=== PATIENT | female | born 2000 | race Caucasian/White ===

== ENCOUNTER 2018-10-06 06:04 | Day surgery (SDC) | payer OTHER ==
[2018-09-29 10:02] LABS: HEMATOCRIT 41.3 % (36.0-47.0); MEAN CORPUSCULAR HEMOGLOBIN 30.7 pg (27.0-33.4); MEAN CORPUSCULAR VOLUME 90 fl (80-97); PLATELET COUNT 169 10^3/uL (150-450); RED BLOOD COUNT 4.58 10^6/uL (3.72-5.28); RED CELL DISTRIBUTION WIDTH 12.5 % (11.5-14.0); WHITE BLOOD COUNT 4.5 10^3/uL (4.0-10.5)
[2018-09-29 10:23] LABS: APPEARANCE,URINE CLEAR; BILIRUBIN,URINE NEGATIVE (NEGATIVE); COLOR,URINE YELLOW; GLUCOSE, URINE NEGATIVE (NEGATIVE); KETONES,URINE NEGATIVE (NEGATIVE); LEUKOCYTE ESTERASE,URINE NEGATIVE (NEGATIVE); NITRITE,URINE NEGATIVE (NEGATIVE); PROTEIN,URINE NEGATIVE (NEGATIVE); URINE SPECIFIC GRAVITY 1.023; UROBILINOGEN,URINE NEGATIVE mg/dL (<2.0)
[2018-09-29 10:32] LABS: ANION GAP 11 (5-19); BLOOD UREA NITROGEN 9 mg/dL (7-20); CALCIUM 9.5 mg/dL (8.4-10.2); CARBON DIOXIDE 26 mmol/L (22-30); CHLORIDE 107 mmol/L (98-107); GLUCOSE 86 mg/dL (75-110); POTASSIUM 4.7 mmol/L (3.6-5.0); SODIUM 144.1 mmol/L (137-145)
--- NOTE | 2018-09-29 13:39 | EKG REPORT ---
SEVERITY:- NORMAL ECG - SINUS RHYTHM : Confirmed by: Eder Sahu MD 29-Sep-2018 13:38:59
[~2018-10-06 06:04] MED LIST: CEFAZOLIN 2 GM/D5W RTU 2 GM/50 ML RTUPB IV ONE; CEFAZOLIN 2 GM/D5W RTU 2 GM/50 ML RTUPB IV PRN; LACTATED RINGERS 1000 ML IV PRN; LIDOCAINE 0.5% INJ-PF (5 MG/ML) 50 ML SDV SUBCUT PRN
[2018-10-06] MEDS ORDERED: KETOROLAC TROMETHAMINE 60 MG/2 ML SDV ONE (06:14)
[2018-10-06] MEDS ORDERED: LIDOCAINE 2% INJ-PF (20 MG/ML) 10 ML AMPUL ONE (06:14)
[2018-10-06] MEDS ORDERED: MIDAZOLAM 2 MG/2 ML INJ ONE (06:15)
[2018-10-06] MEDS ORDERED: DEXAMETHASONE SOD PHOSPHATE INJ 4 MG/1 ML VIAL ONE (06:15)
[2018-10-06] MEDS ORDERED: FENTANYL CITRATE INJ/PF 100 MCG/2 ML AMPUL ONE ×2 (06:15→11:18)
[2018-10-06] MEDS ORDERED: ONDANSETRON HCL INJ/PF 4 MG/2 ML SDV ONE (06:15)
[2018-10-06] MEDS ORDERED: PROPOFOL INJ 200 MG/20 ML VIAL IV ONE (06:15)
[2018-10-06] MEDS ORDERED: ACETAMINOPHEN 1,000 MG/100 ML RTUPB IV ONE (06:16)
[2018-10-06] MEDS ORDERED: MEPERIDINE HCL/PF INJ 25 MG/1 ML DISP.SYRIN IV PRN (08:23)
[2018-10-06] MEDS ORDERED: FENTANYL CITRATE INJ/PF 100 MCG/2 ML AMPUL IV PRN ×3 (08:23)
[2018-10-06] MEDS ORDERED: PROMETHAZINE HCL INJ 25 MG/1 ML VIAL IV PRN ×2 (08:23)
[2018-10-06] MEDS ORDERED: ONDANSETRON HCL INJ/PF 4 MG/2 ML SDV IV PRN ×2 (08:23→11:09)
[2018-10-06] MEDS ORDERED: DIPHENHYDRAMINE HCL 50 MG/ML VIAL IV PRN (08:23)
[2018-10-06] MEDS ORDERED: MORPHINE SULFATE 10 MG/ML INJ IV PRN ×2 (08:23→11:09)
[2018-10-06] MEDS: BUPIVACAINE HCL 0.5 % INJ/PF 30 ML SDV ONE ×2 (08:30→10:38)
[2018-10-06] MEDS ORDERED: SUCCINYLCHOLINE CHLORIDE INJ 200 MG/10 ML VIAL ONE (08:52)
--- NOTE | 2018-10-06 11:08 | Operative Report ---
Operative Report DATE OF SURGERY: 10/06/18 PREOPERATIVE DIAGNOSIS: Left scaphoid nonunion POSTOPERATIVE DIAGNOSIS: Same OPERATION: ORIF scaphoid nonunion with vascularized bone graft SURGEON: KOFFI WARD ANESTHESIA: GA COMPLICATIONS: None ESTIMATED BLOOD LOSS: Minimal PROCEDURE: Indication for above procedure: 17-year-old female who sustained a fracture of her scaphoid. In outside facility she underwent 2 previous surgical treatments first being an ORIF second being removal of hardware. Patient presented to me with persistent pain and radiographs consistent with scaphoid nonunion. We discussed treatment options including salvage procedure versus attempted ORIF. After discussing risks and benefits were discussed. Joint decision was then made to proceed with reported reduction internal fixation with vascularized bone graft. Patient verbalized understanding consented for the procedure. Procedure In Detail: Patient was seen and evaluated in the preoperative holding area. The LEFT upper extremity was initialized and marked. Patient received 2g of Ancef IV for bacterial prophylaxis. Patient was taken back to the operative room where transferred to the operative table and placed under general anesthesia. Once they were adequately anesthetized a nonsterile tourniquet was placed on the upper extremity. A surgical team debriefing was performed ensuring all instrumentation was available, the surgical procedure was discussed with possible concerns reviewed. The upper extremity was prepped with chlorhexidine and alcohol and draped in a sterile fashion. A timeout was done identifying correct patient, procedure and extremity everyone in attendance agree with this and verbalized no concerns. The extremity was elevated and the tourniquet was inflated to 250 mmHg. Volar skin incision was made, curvilinear crossing the wrist flexion crease. The FCR tendon was identified and the palmar cutaneous branch of the median nerve adjacent was tagged. Blunt dissection was performed down to the scaphoid. Branch of the superficial radial artery was identified and coagulated to obtain access to the scaphoid. The volar capsule was then incised to expose the nonunion site, RSL ligament was left undisrupted. With wrist extension the nonunion site was opened. With curettes and a small rondure the nonunion site debrided to normal-appearing tissues. There was fragmentation of the ulnar aspect of the proximal scaphoid. With the wrist in extension the humpback deformity was corrected. The defect was measured to be approximately 12 mm x 10 mm x 10 mm. The FCR tendon was then retracted in a radial direction to expose the underlying pronator quadratus the pedicle of the palmar radiocarpal artery within the pronator was identified and tracked from radially to ulnarly. Under C-arm fluoroscopy the confines of the graft were marked with K wires to ensure no encroachment on the radiocarpal joint or DRUJ. The appropriate size measured as noted above. Sharp dissection was performed around the pedicle of the radiocarpal artery including periosteum. Pedicle remained undisturbed. With small osteotomes the pedicle graft was then carefully removed. The periosteum was elevated radially to complete graft harvest. Graft was carefully removed blunt dissection performed following the pedicle to its origin from the radial artery to obtain adequate pedicle length. The FCR sheath was then opened to allow inset of the graft within the defect of the scaphoid. Additional cancellus bone was removed from the harvest site. Area was copiously irrigated with normal saline. Defect within the distal radius was then filled with Vitoss synthetic bone graft The wrist was then volar flexed and a incision made along the radial styloid and superficial radial nerve retracted. A 0.045 K wire placed from the radius into the lunate to maintain alignment of the proximal pole of the scaphoid. The wrist was then extended an additional 0.045 K wire was placed from the scaphoid into the capitate to maintain alignment. C-arm fluoroscopy was obtained confirming adequate alignment with correction of the humpback deformity. K wire was placed from the volar scaphoid tubercle transversing into the proximal pole of the scaphoid under direct visualization to ensure adequate bone stock within the proximal pole. C-arm fluoroscopy was obtained confirming appropriate placement. Once satisfied with placement of the K wire and correction of the deformity the K wire was reversed. Wound was copiously irrigated with normal saline. The nonunion site was packed with cancellus bone and the vascularized graft inset. K wire was then once again advanced transversing the vascularized graft. C-arm fluoroscopy was obtained confirming church of alignment with adequate fixation. K wires within the scaphoid- capitate and radial lunate were cut and left outside the skin. Tourniquet was deflated which demonstrate good blood flow to the vascularized pedicle Volar capsule was reapproximated with 2-0 Vicryl. Any peripheral bleeding was controlled with bipolar cautery until the wound was dry. Subcutaneous tissues were closed with interrupted 4-0 Monocryl suture. Skin was closed with 4-0 nylon suture. 30 cc of 0.5% bupivacaine without epinephrine was injected for postoperative pain control. Wound was dressed and patient was placed in a thumb spica splint. Sponge counts, instrument counts, needle counts counts were correct. Patient was then awoken from anesthesia. Transferred from the operating room table to the operating room stretcher. There was no intraoperative complications patient tolerated procedure well stable to PACU. Postoperative plan: Patient will follow in the office in 2 weeks for suture removal and we placed in a thumb spica cast. Will begin bone stimulator postoperatively. Plan will be for pin removal at 6 weeks postoperatively.
[2018-10-06] MEDS ORDERED: OXYCODONE-ACETAMINOPHEN 5-325 MG TABLET PO PRN (11:09)
[2018-10-06] MEDS ORDERED: OXYCODONE-ACETAMINOPHEN 5-325 MG TABLET ONE (11:49)
--- NOTE | 2018-10-06 12:28 | RADIOLOGY REPORT (SQ) ---
EXAM DESCRIPTION: NO CHG FLUORO; WRIST LEFT 2 VIEWS COMPLETED DATE/TIME: 10/06/2018 10:50 am REASON FOR STUDY: LEFT WRIST ORIF SCAPHOID W/VASCULARIZED BONE GRAFT S62.022K DISP FX OF MID 3RD OF NAVIC BONE OF L WRS, 7THK COMPARISON: None. FLUOROSCOPY TIME: 1 minutes 58 seconds 13 images saved to PACS. TECHNIQUE: Intra-operative images acquired during surgical procedure to evaluate progress. NUMBER OF IMAGES: 13 LIMITATIONS: None. FINDINGS: Numerous images obtained during surgery on the wrist. Reportedly the left wrist. Images are not labeled with respect to side, however. There is open reduction internal fixation noted, screw across scaphoid fracture with external pins ac ross the mid carpus. Please correlate with operative note. IMPRESSION: IMAGE(S) OBTAINED DURING PROCEDURE. COMMENT: Quality ID 145: Final reports for procedures using fluoroscopy that document radiation exp osure indices, or exposure time and number of fluorographic images (if radiation exposure indices are not available) Please consult full operative report of the attending physician for description of the procedure. TECHNICAL DOCUMENTATION: JOB ID: [id number] [employer]- All Rights Reserved Reading location - IP/workstation name: [email or web address]
--- NOTE | 2018-10-06 12:28 | RADIOLOGY REPORT (SQ) ---
EXAM DESCRIPTION: NO CHG FLUORO; WRIST LEFT 2 VIEWS COMPLETED DATE/TIME: 10/06/2018 10:50 am REASON FOR STUDY: LEFT WRIST ORIF SCAPHOID W/VASCULARIZED BONE GRAFT S62.022K DISP FX OF MID 3RD OF NAVIC BONE OF L WRS, 7THK COMPARISON: None. FLUOROSCOPY TIME: 1 minutes 58 seconds 13 images saved to PACS. TECHNIQUE: Intra-operative images acquired during surgical procedure to evaluate progress. NUMBER OF IMAGES: 13 LIMITATIONS: None. FINDINGS: Numerous images obtained during surgery on the wrist. Reportedly the left wrist. Images are not labeled with respect to side, however. There is open reduction internal fixation noted, screw across scaphoid fracture with external pins ac ross the mid carpus. Please correlate with operative note. IMPRESSION: IMAGE(S) OBTAINED DURING PROCEDURE. COMMENT: Quality ID [id number]: Final reports for procedures using fluoroscopy that document radiation exp osure indices, or exposure time and number of fluorographic images (if radiation exposure indices are not available) Please consult full operative report of the attending physician for description of the procedure. TECHNICAL DOCUMENTATION: JOB ID: [id number] [employer]- All Rights Reserved Reading location - IP/workstation name: [email or web address]
[2018-10-06 13:25] VITALS: BP 100/65
== END 2018-10-06 13:00 | disposition home or self-care (01) ==
LOC: OROUT 06:04
PROVIDERS: ATTEND Orthopaedic Surgery
DX: S62.022K Displaced fracture of middle third of navicular [scaphoid] bone of left wrist, subsequent encounter for fracture with nonunion (principal); X58.XXXD Exposure to other specified factors, subsequent encounter; M25.532 Pain in left wrist
CPT/HCPCS: 93005; 36415; 85027; 81025; 80048; 81001; 73100; 93010; 25440; C1713 ×2; C1769; J2250; J3490 ×2; J1100; J1885; J3010; J0330; J2405; J2704; J0690; J0131; 01830